=== PATIENT | female | born 1970 | race Caucasian/White ===

== ENCOUNTER 2018-02-01 05:11 | Day surgery (SDC) | payer BC ==
[2018-01-31 10:21] VITALS: BMI 25.8
[2018-02-01] MEDS ORDERED: ceFAZolin SODIUM 1 GM VIAL ONE ×2 (06:53→07:16)
[2018-02-01] MEDS ORDERED: LIDOCAINE HCL/PF 2% SDV 5ML VIAL ONE (07:16)
[2018-02-01] MEDS ORDERED: DEXAMETHASONE SOD PHOSPHATE 4 MG/1 ML VIAL ONE (07:16)
[2018-02-01] MEDS ORDERED: SODIUM CHLORIDE 0.9% P/F 10 ML VIAL IJ ONE ×2 (07:16→09:07)
[2018-02-01] MEDS ORDERED: MIDAZOLAM HCL 2 MG/2 ML SINGLE DOSE VIAL ONE ×2 (07:18→08:05)
[2018-02-01] MEDS ORDERED: PROPOFOL 20 ML ONE ×3 (07:19→10:11)
[2018-02-01] MEDS ORDERED: KETAMINE HCL 200 MG/20 ML VIAL ONE (07:19)
[2018-02-01] MEDS ORDERED: ROCURONIUM BROMIDE 50 MG/5 ML VIAL ONE (07:19)
[2018-02-01] MEDS ORDERED: ONDANSETRON 4 MG/2 ML VIAL IVPUSH PRN (07:43)
[2018-02-01] MEDS ORDERED: oxyCODONE HCL 5 MG TABLET PO PRN ×4 (07:43→10:57)
[2018-02-01] MEDS ORDERED: LACTATED RINGERS SOLUTION 1,000 ML IV SCH ×2 (07:45→11:00)
[2018-02-01] MEDS ORDERED: ceFAZolin SODIUM 1 GM VIAL IVPB ONE ×2 (08:20→09:00)
[2018-02-01] MEDS ORDERED: MAGNESIUM SULF 50% (8.12 MEQ/2 ML-1 GM VIAL) ONE (08:39)
[2018-02-01] MEDS ORDERED: ePHEDrine SULFATE 50 MG/1 ML AMPULE ONE (08:51)
[2018-02-01] MEDS ORDERED: NEOSTIGMINE METHYLSULFATE 0.5 MG/ML - 10 ML MDV ONE (08:56)
[2018-02-01] MEDS ORDERED: GENTAMICIN SO4 80 MG/2 ML VIAL IVPB ONE (09:00)
[2018-02-01] MEDS ORDERED: BACITRACIN 50,000 UNITS VIAL NR ONE (09:00)
[2018-02-01] MEDS ORDERED: GENTAMICIN SO4 80 MG/2 ML VIAL ONE (09:06)
[2018-02-01] MEDS ORDERED: ONDANSETRON 4 MG/2 ML VIAL IVPB PRN (10:57)
--- NOTE | 2018-02-01 11:00 | OP ---
Operative Note - Note: Operative Date: 02/01/18 Pre-Operative Diagnosis: capsular contracture Operation: bilateral capsulotomies with implant exchange Findings: above Implants: bryce ssf 450 x 2 Post-Operative Diagnosis: Same as Pre-op Surgeon: Franky Townsend Anesthesia: General
[2018-02-01] MEDS ORDERED: ACETAMINOPHEN INJECTION 100 ML IVPB ONE (11:07)
--- NOTE | 2018-02-01 11:08 | SURG ---
Surgery Speech Therapist Technician Note Speech Therapist Technician: Hui Kinsey PA-C Date of Service: 02/01/18 Diagnosis: capsular contracture Procedure: bilateral capsulotomies with implant exchange I was present for the entirety of the operative procedure. For further detail, please refer to operative report. Visit type - Case Type Case Type: Scheduled - Emergency Emergency Visit: No - New patient This patient is new to me today: Yes Date on this admission: 02/01/18
[2018-02-01] MEDS ORDERED: ACETAMINOPHEN 1000 MG/100 ML VIAL (NON FORMULARY) IVPB ONE (11:10)
[2018-02-01] MEDS ORDERED: ONDANSETRON 4 MG/2 ML VIAL ONE (12:06)
[2018-02-01 12:34] VITALS: TEMP 98
[2018-02-01 13:34] VITALS: BP 138/56; PULSE 90
--- NOTE | 2018-02-01 18:26 | OP ---
DATE OF OPERATION: 02/01/2018 TITLE OF PROCEDURE: Bilateral capsulectomy of breast reconstruction prostheses and capsulotomy with removal of intact breast prostheses, replacement with larger silicone gel breast prostheses, left breast reconstruction, revision by modification of mastectomy flap, excision of inferior free edge and medial translocation of existing left sided mastectomy flap reconstruction. ATTENDING SURGEON: Franky Townsend M.D. SEWAGE PLANT OPERATOR: Alexandre Capellan PREOPERATIVE DIAGNOSIS: Right sided breast cancer status post bilateral mastectomy with breast asymmetry of reconstruction and bilateral Peralta grade 4 capsular contractures to implant breast reconstruction. DESCRIPTION OF PROCEDURE: The patient is marked in the holding area. Risks, benefits, and alternatives to the procedure are discussed at length, understood and agree to proceed. The patient is brought to the operating room, placed in a supine position. A gram of Ancef is given preoperatively. She is prepped and draped in standard surgical fashion. Timeout is called. Patient, procedure, side, sites are verified. The right sided breast reconstruction is addressed first. The inframammary incision is made, dissection carried down to the level of the periprosthetic capsule. The capsulotomy is performed. The existing silicone gel implant is removed. This is intact. An inferior wedge capsulectomy is then performed, and this capsule is sent for pathology. The capsule appears thickened and fibrotic. An extensive capsulotomy is then performed, releasing contracted tissues. Hemostasis is meticulously achieved. The inferior pole of the capsule is then repaired to a position 1.5 cm inferior on the chest wall. This is performed by a series of interrupted 2-0 PDS sutures between the chest wall fascia and the inferior pole capsule. Once this pole is recreated and symmetry is confirmed on the contralateral side, attention is then directed toward the contralateral side, where inframammary incision is then made. Capsulotomy is performed, exposing the implant. The implant is removed. It is the same implant as was found on the other side, which is an intact [place] 400 mL smooth round silicone gel implant. The inframammary fold on this pocket is preserved, however capsulotomies are performed. The capsulotomies are performed. This capsule is likewise fibrotic and operative findings are consistent with a Peralta grade 4 capsular contracture. At this point, decision as was previously discussed of adding increase in volume of implants. This made the cavities, are copiously irrigated with triple antibiotic solution. A standard triple antibiotic solution is used, using a no-touch technique. The right sided implant is placed and oriented properly. This is a Natrelle FFF smooth round silicone gel high profile implant 450 mL. The same style and size implant is then placed using the same technique on the other side. Skin is tailor tacked, and patient is brought to a seated upright position where excellent symmetry of size and shape are assured. Excess skin is noted on the left inferior pole. This skin is excised using a scalpel and Bovie cautery. The inferior edge of the mastectomy skin tissue is mobilized from the capsule, mobilized medially, creating a lateral mastopexy effect on the implant to stabilize this position more superomedially. The capsule is closed with a running 2-0 PDS suture after copious irrigation with triple antibiotic solution as the implants were rinsed in as well. The skin is then closed with a series of interrupted buried deep dermal 3-0 Monocryl suture followed by running subcuticular 3-0 Monocryl suture. On the right side, the pocket is copiously irrigated with triple antibiotic solution. Capsule is closed with a running 2-0 PDS suture followed by closure of the skin on the right side with a series of interrupted buried deep dermal 3-0 Monocryl suture followed by running subcuticular 3-0 Monocryl suture. Double 4-0 nylon sutures are used to even the closure. The wounds were dressed with Steri-Strips, ABDs gauze, surgical bra, and Cedric wrap on the superior pole. Patient was awoken from anesthesia having tolerated procedure well and transferred to recovery without complications. Keegan [id number]
--- NOTE | 2018-02-04 16:24 | PATH ---
Surgical Pathology Report Patient Name: BUZZ PALACIO [facility]. Rec. #: [id number] /Age/Gender: 1970 (Age: 47) / F Account: [id number] Location: [facility] SUR[facility] Taken: 02/01/2018 Received: 02/01/2018 Reported: 02/04/2018 Physicians: Franky Townsend Specimen(s) Received A: PIECE OF CAPSULE RIGHT BREAST B: PIECE OF CAPSULE LEFT BREAST C: OLD BREAST IMPLANTS BILATERAL D: SKIN MASTECTOMY Clinical History Capsular contracture of breast implants bilateral Final Diagnosis A. PIECE OF CAPSULE, RIGHT BREAST, EXCISION: PORTION OF FIBROUS TISSUE SHOWING FIBROSIS, CHRONIC INFLAMMATION WITH SMALL LYMPHOCYTIC, HISTIOCYTES, AND PLASMACYSTIC INFILTRATE. NEGATIVE FOR CARCINOMA. B. PIECE OF CAPSULE, RIGHT BREAST, EXCISION: PORTION OF FIBROUS TISSUE SHOWING FIBROSIS AND FOCAL HISTIOCYTIC REACTION. NEGATIVE FOR CARCINOMA. C. OLD BREAST IMPLANTS BILATERAL, REMOVAL: CONSISTENT BREAST IMPLANTS. GROSS EXAMINATION ONLY. D. SKIN, LEFT MASTECTOMY, EXCISION: SEGMENT OF SKIN WITH NO SIGNIFICANT PATHOLOGIC FINDINGS. Electronically Signed Ady Means M.D. Gross Description A. Received in formalin labeled "piece of capsule right breast," are 2 bowman portions of fibrous tissue measuring 2.0 x 1.5 x 0.3 cm in aggregate. The specimens are sectioned and entirely submitted in one cassette. B. Received in formalin labeled "piece of capsule left breast," is a 6.0 x 1.0 x 0.2 cm portion of bowman fibrous tissue, consistent with a portion of breast capsule. No discrete mass is identified. Director [employer] sections are submitted in one cassette. C. Received fresh labeled "old breast implants bilateral," are 2 clear, rubbery, intact breast implants averaging 1.5 cm in diameter and 3.5 cm in depth. No soft tissue is present. No sections are submitted, gross only. D. Received in formalin labeled "skin left mastectomy" is a 6.0 x 1.5 cm bowman, elliptical, unoriented portion of skin excised to depth of 1.1 cm. The epidermal surface is unremarkable. No discrete lesions are identified. Director [employer] sections are submitted in one cassette. DL/02/01/2018 saudi/02/01/2018
== END 2018-02-01 13:25 | disposition home or self-care (01) ==
LOC: JASU-SURG 05:11
PROVIDERS: ATTEND Plastic Surgery
PROC: 0HPT0JZ Removal of Synthetic Substitute from Right Breast, Open Approach (ICD-10-PCS; 2018-02-01)
PROC: 0HRV0JZ Replacement of Bilateral Breast with Synthetic Substitute, Open Approach (ICD-10-PCS; 2018-02-01)
PROC: 0HRU07Z Replacement of Left Breast with Autologous Tissue Substitute, Open Approach (ICD-10-PCS; 2018-02-01)
PROC: 0HPU0JZ Removal of Synthetic Substitute from Left Breast, Open Approach (ICD-10-PCS; principal; 2018-02-01 08:00)
DX: T85.44XA Capsular contracture of breast implant, initial encounter (principal); Y82.8 Other medical devices associated with adverse incidents; Y92.9 Unspecified place or not applicable; Z85.3 Personal history of malignant neoplasm of breast; Z90.13 Acquired absence of bilateral breasts and nipples; N65.1 Disproportion of reconstructed breast
CPT/HCPCS: 84703; 88300-TC; 88304-TC; 94760; J0131